=== PATIENT | male | born 1955 ===

== ENCOUNTER → 2024-09-16 | Outpatient (CLI) | payer MEDICARE, BC ==
[~2024-09-16] VITALS: Ht 165.1 cm; Wt 71.8 kg
[~2024-09-16] MED LIST: ALBU10.7; ALBU10.7 PO; AMLO-258 PO; BUDE10.32 IH; METO25XL PO; ROSU10TA72 PO; SITA25 PO; VALS80TA2 PO
[2024-09-16 12:36] VITALS: BP 114/71; PULSE 74; RESP 20; TEMP 98.1; O2SAT 97
== END | disposition still patient (30) ==
LOC: SRCNTR 12:29
PROVIDERS: ATTEND Internal Medicine Pulmonary Disease
DX: J44.1 Chronic obstructive pulmonary disease with (acute) exacerbation (principal); D56.3 Thalassemia minor; E11.9 Type 2 diabetes mellitus without complications; E78.5 Hyperlipidemia, unspecified; I10 Essential (primary) hypertension; I25.10 Atherosclerotic heart disease of native coronary artery without angina pectoris; J45.901 Unspecified asthma with (acute) exacerbation; K21.9 Gastro-esophageal reflux disease without esophagitis; M17.0 Bilateral primary osteoarthritis of knee; Z79.84 Long term (current) use of oral hypoglycemic drugs; Z79.899 Other long term (current) drug therapy; Z83.3 Family history of diabetes mellitus
CPT/HCPCS: G0463; Z7500